=== PATIENT | female | born 1945 | race Caucasian/White ===

== ENCOUNTER 2020-02-25 17:00 | Inpatient (IN) | payer MEDICARE, OTHER ==
[2020-02-25 20:17] VITALS: BP 112/50
--- NOTE | 2020-02-26 06:47 | Psychiatric Evaluation ---
DATE OF SERVICE: 02/25/2020 AGE: 74. SEX: Female. PHYSICIAN: Dr. Nixon. CHIEF COMPLAINT: "I need a sip of water." "I can't breathe." HISTORY OF PRESENT ILLNESS: The patient is a 74-year-old female who was admitted to the hospital because of confusion. The patient also fell and has bruises all over her body and also has a bump on her head. The patient was medically cleared on [facility] and transferred to the hospital. The patient also had mechanical fall. Chart reviewed and the patient interviewed. The patient is confused at this time. She also was able to answer some of the questions coherently, like she knew her age and she knew that she lives "with my sister in the [facility]." She also did identify me as a doctor. The patient has history of anxiety and depression and the patient has been taking Remeron as well as Xanax and Zoloft. The patient also at this time hopeful. She was not taking any medications for seizures and the patient had seizure episode when she was admitted to [facility]. The patient said that she was , but her and she has no children. The patient also has been depressed, but she was not able to elaborate on the reasons for her depression. PAST PSYCHIATRIC ILLNESS: The patient obviously has history of depression. PAST MEDICAL HISTORY: The patient has seizure disorder as well as atrial fibrillation. The patient also had fall with multiple bruises. Also, she has dyslipidemia. FAMILY PSYCHIATRIC AND CHEMICAL DEPENDENCY HISTORY: Nothing reported. CHEMICAL DEPENDENCY HISTORY: The patient denied. PAIN ASSESSMENT: Nothing reported. ABUSE HISTORY: Nothing reported. LEGAL HISTORY: Nothing reported. SOCIAL HISTORY: The patient is a . She lives with her sister. No children. No known alcohol or drug use. ALLERGIES: No known allergies. MENTAL STATUS EXAMINATION: The patient appears her stated age. Unkempt. Sad affect. Confused. Rambling. Mood is depressed. The patient is talking to herself and she did not answer question regarding hallucinations or delusions or regarding suicide or homicide. The patient is alert and oriented to situation, but not to place or person. Impaired immediate and recent memory, but intact remote memory and she did remember her date. Poor insight and she does not know why she is in the hospital. Poor judgment. She is asking for water while she has water in her hands during my interview. Unable to assess her intelligence at this time because of her confusion. Poor concentration and attention span. ASSESSMENT: PRIMARY DIAGNOSIS: Major depression, severe, recurrent, with psychotic features. Rule out dementia with psychosis. MEDICAL DIAGNOSES: 1. Seizure disorder. 2. Atrial fibrillation. 3. Dyslipidemia. 4. Status post mechanical fall with multiple bruises to different areas of her body. TREATMENT PLAN: The patient started on Keppra. Continue same dose. Also, the patient currently was taking Xanax and Ativan and we will discontinue Ativan and continue Xanax with gradual try to reduce the dose of the Xanax. She will work on her ineffective coping and adjusting psychotropic medications. ESTIMATED LENGTH OF STAY: 5-7 days. PATIENT'S STRENGTHS AND WEAKNESSES: The patient seems to have supportive sister. Weakness is her ineffective coping. AFTER DISCHARGE PLAN: The patient might need to go to a nursing facility for physical therapy and rehabilitation. Otherwise, the patient will return to live with her sister with outpatient treatment. CRITERIA FOR DISCHARGE: The patient will not be agitated or psychotic and will stabilize psychotropic medications and will establish outpatient treatment plans. JOB# [id number]
[2020-02-26] MEDS: Apixaban 5 MG TABLET PO SCH ×2 (08:22→16:32)
--- NOTE | 2020-02-26 18:53 | History & Physical ---
ADMIT DATE: HISTORY OF PRESENT ILLNESS: We have a 74-year-old female with AFib, seizure disorder who was brought here for agitation. The patient apparently was talking to herself, has hallucinations and delusions. PAST MEDICAL HISTORY: 1. AFib. 2. Seizure disorder. 3. Dyslipidemia. 4. Status post fall. MEDICATIONS: List reviewed. ALLERGIES: None. SOCIAL HISTORY: Tobacco, IV drugs, ETOH negative. PHYSICAL EXAMINATION: VITAL SIGNS: Temperature is 97.8, pulse 78, respirations 136/75, satting 96%. HEENT: Normocephalic, atraumatic head exam. NECK: Supple. CARDIOVASCULAR: Regular rate and rhythm. LUNGS: Decreased breath sounds. ABDOMEN: Soft, nontender. EXTREMITIES: No edema, cyanosis or clubbing. ASSESSMENT AND PLAN: 1. Atrial fibrillation. 2. Seizure disorder. 3. Psychosis. The patient will be medically managed. Continue supportive care. JOB# [id number]
[2020-02-26] MEDS ORDERED: Non-Formulary Item 1 EA (Melatonin [Melatonin] 10 MG) PO SCH (21:00)
[2020-02-26] MEDS: Atorvastatin Calcium 10 MG TAB PO SCH (21:21)
[2020-02-27] MEDS: Apixaban 5 MG TABLET PO SCH ×2 (08:58→16:24)
--- NOTE | 2020-02-27 15:29 | Internal Medicine Prog Note ---
Internal Medicine Subjective - Subjective Service Date: 02/27/20 Patient seen and examined:: without staff Patient is:: awake, verbal Per staff patient has:: no adverse event, no episodes of fall Internal Medicine Objective - Physical Exam Vitals and I&O: Vital Signs Temp 98.4 F 02/27/20 06:11 Pulse 117 02/27/20 08:00 Resp 20 02/27/20 08:00 BP 111/60 02/27/20 08:00 Pulse Ox 99 02/27/20 06:11 Intake & Output 02/26/20 02/27/20 02/27/20 18:59 06:59 18:59 Intake Total 320 120 Balance 320 120 Intake: Oral 320 120 Other: # Voids 3 2 # Bowel Movements 0 Active Medications: Current Medications Acetaminophen (Tylenol) 650 mg PO Q4H PRN PRN Reason: Pain (Mild 1-3) Stop: 04/26/20 06:03 Acetaminophen (Tylenol) 650 mg PO Q4H PRN PRN Reason: Temperature Above 100 Stop: 04/26/20 06:04 Alprazolam (Xanax) 0.25 mg PO Q6HR PRN; Protocol PRN Reason: Anxiety Stop: 04/26/20 06:18 Alprazolam (Xanax) 0.5 mg PO BID [facility] Stop: 04/26/20 08:59 Last Admin: 02/27/20 08:57 Dose: 0.5 mg Atorvastatin Calcium (Lipitor) 10 mg PO HS [facility]; Protocol Stop: 04/26/20 20:59 Last Admin: 02/26/20 21:21 Dose: 10 mg Docusate Sodium (Colace) 100 mg PO DAILY [facility] Stop: 04/26/20 08:59 Last Admin: 02/27/20 08:58 Dose: 100 mg Mirtazapine (Remeron) 15 mg PO [facility] Stop: 04/27/20 20:59 Pregabalin 150 mg/ Pregabalin (50 mg) 200 mg PO DAILY [facility] Stop: 04/27/20 08:59 Last Admin: 02/27/20 08:58 Dose: 200 mg Sertraline HCl (Zoloft) 125 mg PO DAILY [facility] Stop: 04/27/20 08:59 Last Admin: 02/27/20 09:00 Dose: Not Given Trazodone HCl (Desyrel) 175 mg PO [facility]; Protocol Stop: 04/27/20 20:59 Zolpidem Tartrate (Ambien) 5 mg PO HS PRN PRN Reason: Insomnia Stop: 04/25/20 20:17 Last Admin: 02/25/20 23:43 Dose: 5 mg HEENT: NC/AT Neck: No JVD Cardiovascular: RRR, Normal S1, Normal S2 Abdomen: soft, non-tender Internal Medicine Assmt/Plan - Assessment Assessment: Agitation - Plan Plan: continue supportive care
[2020-02-27] MEDS: Atorvastatin Calcium 10 MG TAB PO SCH (20:22)
--- NOTE | 2020-02-27 21:40 | Progress Notes ---
DATE: 02/27/2020 SUBJECTIVE: Chart reviewed and the patient interviewed. Also discussed the patient's condition with the staff and reviewed records and labs. "I need TMS." The patient surprised me by saying that and when I asked her, she said that she did have TMS before and it did help her. She could not remember when or where, but the patient is still in a confused state and she is still rambling and wandering around. She also still seems to be suspicious and slightly paranoid. Also, has difficulty sleeping at night, although she is taking Remeron in a dose of 30 mg every day. Remeron and the higher dose usually has different effects on patients and can keep them awake rather than help them to sleep. The patient's gait is steady, but slow. Vital signs are stable and no new labs available for review. MENTAL STATUS EXAMINATION: Calm. Cooperative. Sad affect. In a depressed mood. Thought processes are mainly goal directed. The patient denies any hallucinations, but seems to be suspicious and paranoid. Today, she denies any thoughts of suicide or homicide. ASSESSMENT: The patient is still psychotic and confused. TREATMENT PLAN: We will decrease Remeron to 15 mg at bedtime and we will increase trazodone to 175 mg at bedtime and we will increase Zoloft to 125 mg every day. Also, continue monitoring and adjusting her psychotropic medications and continue to work on her ineffective coping and on her behavior. ESTIMATED LENGTH OF STAY: 2-4 days. REASON TO CONTINUE HOSPITAL STAY: The patient is still depressed and confused and needs to work on her ineffective coping and also her psychosis. JOB# [id number]
--- NOTE | 2020-02-28 08:01 | Progress Notes ---
DATE: SUBJECTIVE: Chart reviewed and the patient interviewed. Also discussed the patient's condition with the staff and reviewed records and labs. The patient is still confused and she still has difficulty expressing herself and her feelings. On the other hand, the patient is cooperative and compliant with taking her medications. The patient also is still having mood swings and she is still restless and also needs lots of redirections. Otherwise, the patient is compliant with taking her medications with no side effects of medications. The patient's gait is steady. Vital signs are stable and no new labs available for review. TREATMENT PLAN: We will continue monitoring her behavior and her condition closely. Also, continue monitoring psychotropic medications. Also, continue to work on her ineffective coping and her agitation. ESTIMATED LENGTH OF STAY: 2-3 days. REASON TO CONTINUE HOSPITAL STAY: The patient is still anxious and still needs close monitoring and adjusting her medications. JOB# [id number]
[2020-02-28] MEDS: Apixaban 5 MG TABLET PO SCH ×2 (08:43→16:19)
--- NOTE | 2020-02-28 12:21 | Internal Medicine Prog Note ---
Internal Medicine Subjective - Subjective Service Date: 02/28/20 Patient seen and examined:: without staff Patient is:: awake, verbal Per staff patient has:: no adverse event, no episodes of fall Internal Medicine Objective - Physical Exam Vitals and I&O: Vital Signs Temp 97.8 F 02/28/20 05:37 Pulse 67 02/28/20 05:37 Resp 18 02/28/20 05:37 BP 100/52 02/28/20 05:37 Pulse Ox 97 02/28/20 05:37 Intake & Output 02/27/20 02/28/20 02/28/20 18:59 06:59 18:59 Intake Total 1200 240 Balance 1200 240 Intake: Oral 1200 240 Other: # Voids 2 # Bowel Movements 1 0 Active Medications: Current Medications Acetaminophen (Tylenol) 650 mg PO Q4H PRN PRN Reason: Pain (Mild 1-3) Stop: 04/26/20 06:03 Acetaminophen (Tylenol) 650 mg PO Q4H PRN PRN Reason: Temperature Above 100 Stop: 04/26/20 06:04 Alprazolam (Xanax) 0.25 mg PO Q6HR PRN; Protocol PRN Reason: Anxiety Stop: 04/26/20 06:18 Alprazolam (Xanax) 0.5 mg PO BID [facility] Stop: 04/26/20 08:59 Last Admin: 02/28/20 08:43 Dose: 0.5 mg Atorvastatin Calcium (Lipitor) 10 mg PO [facility]; Protocol Stop: 04/26/20 20:59 Last Admin: 02/27/20 20:22 Dose: 10 mg Docusate Sodium (Colace) 100 mg PO DAILY [facility] Stop: 04/26/20 08:59 Last Admin: 02/28/20 08:43 Dose: 100 mg Mirtazapine (Remeron) 15 mg PO [facility] Stop: 04/27/20 20:59 Last Admin: 02/27/20 20:22 Dose: 15 mg Pregabalin 150 mg/ Pregabalin (50 mg) 200 mg PO DAILY [facility] Stop: 04/27/20 08:59 Last Admin: 02/28/20 08:43 Dose: 200 mg Sertraline HCl (Zoloft) 125 mg PO DAILY [facility] Stop: 04/27/20 08:59 Last Admin: 02/28/20 08:43 Dose: 125 mg Trazodone HCl (Desyrel) 175 mg PO HS [facility]; Protocol Stop: 04/27/20 20:59 Last Admin: 02/27/20 20:23 Dose: 175 mg Zolpidem Tartrate (Ambien) 5 mg PO HS PRN PRN Reason: Insomnia Stop: 04/25/20 20:17 Last Admin: 02/25/20 23:43 Dose: 5 mg HEENT: NC/AT Neck: No JVD Cardiovascular: RRR, Normal S1, Normal S2 Abdomen: soft, non-tender Internal Medicine Assmt/Plan - Assessment Assessment: Agitation - Plan Plan: continue supportive care
[2020-02-28] MEDS: Atorvastatin Calcium 10 MG TAB PO SCH (21:06)
[2020-02-29] MEDS: Apixaban 5 MG TABLET PO SCH ×2 (08:29→16:11)
[2020-02-29] MEDS: Atorvastatin Calcium 10 MG TAB PO SCH (21:16)
--- NOTE | 2020-02-29 21:40 | Progress Notes ---
DATE: 02/29/2020 SUBJECTIVE: The patient was seen, chart reviewed, and discussed with staff. The patient continues to be quite disoriented and confused; however, affect is bright and she is generally quite cooperative with treatment. She has been compliant with medications, following unit rules, albeit with some redirections. PLAN: The patient continues to be very unpredictable and confused, so that she will require inpatient care center and treatment. We will monitor on a daily basis for response to medications and titrate medications as needed. [facility]# [id number]
[2020-03-01] MEDS: Apixaban 5 MG TABLET PO SCH ×2 (08:16→17:32)
--- NOTE | 2020-03-01 11:59 | Internal Medicine Prog Note ---
Internal Medicine Subjective - Subjective Service Date: 03/01/20 Patient is:: awake, verbal Per staff patient has:: no adverse event, no episodes of fall Internal Medicine Objective - Physical Exam Vitals and I&O: Vital Signs Temp 97.1 F 03/01/20 06:07 Pulse 75 03/01/20 06:07 Resp 19 03/01/20 06:07 BP 120/60 03/01/20 06:07 Pulse Ox 97 03/01/20 06:07 Intake & Output 02/29/20 03/01/20 03/01/20 18:59 06:59 18:59 Intake Total 300 Output Total 1 Balance 299 Intake: Oral 300 Output: Urine/Stool Mix 1 Other: # Voids 1 1 # Bowel Movements 0 0 Active Medications: Current Medications Acetaminophen (Tylenol) 650 mg PO Q4H PRN PRN Reason: Pain (Mild 1-3) Stop: 04/26/20 06:03 Acetaminophen (Tylenol) 650 mg PO Q4H PRN PRN Reason: Temperature Above 100 Stop: 04/26/20 06:04 Alprazolam (Xanax) 0.25 mg PO Q6HR PRN; Protocol PRN Reason: Anxiety Stop: 04/26/20 06:18 Alprazolam (Xanax) 0.5 mg PO BID [facility] Stop: 04/26/20 08:59 Last Admin: 03/01/20 08:16 Dose: 0.5 mg Atorvastatin Calcium (Lipitor) 10 mg PO [facility]; Protocol Stop: 04/26/20 20:59 Last Admin: 02/29/20 21:16 Dose: 10 mg Docusate Sodium (Colace) 100 mg PO DAILY [facility] Stop: 04/26/20 08:59 Last Admin: 03/01/20 08:16 Dose: 100 mg Levetiracetam (Keppra) 500 mg PO BID [facility] Stop: 04/29/20 08:59 Last Admin: 03/01/20 08:17 Dose: 500 mg Levofloxacin (Levaquin) 500 mg PO DAILY [facility] Stop: 03/05/20 08:59 Last Admin: 03/01/20 08:18 Dose: 500 mg Mirtazapine (Remeron) 15 mg PO [facility] Stop: 04/27/20 20:59 Last Admin: 02/29/20 21:16 Dose: 15 mg Pregabalin 150 mg/ Pregabalin (50 mg) 200 mg PO DAILY [facility] Stop: 04/27/20 08:59 Last Admin: 03/01/20 08:17 Dose: 200 mg Sertraline HCl (Zoloft) 125 mg PO DAILY [facility] Stop: 04/27/20 08:59 Last Admin: 03/01/20 08:15 Dose: 125 mg Trazodone HCl (Desyrel) 175 mg PO HS [facility]; Protocol Stop: 04/27/20 20:59 Last Admin: 02/29/20 21:16 Dose: 175 mg Zolpidem Tartrate (Ambien) 5 mg PO HS PRN PRN Reason: Insomnia Stop: 04/25/20 20:17 Last Admin: 02/25/20 23:43 Dose: 5 mg HEENT: NC/AT Neck: No JVD Lungs: CTAB Cardiovascular: RRR, Normal S1, Normal S2 Abdomen: soft, non-tender Extremities: clear Neurological: no change Internal Medicine Assmt/Plan - Assessment Assessment: 1. UTI 2. Agitation - Plan Plan: start levaquin 500 mg daily sent u/a and culture await final results
--- NOTE | 2020-03-01 20:09 | Progress Notes ---
DATE: 03/01/2020 SUBJECTIVE: A 74-year-old female, currently in the hospital, confusional state. Apparently fell. The patient noting that she "fell" and hit her head, has no idea why she is in a psych hospital, does not even realize she is in a psych hospital, coming from [facility] confused, ongoing disorientation, does not really know why she is here, what is going on. She does ____ to history of psych admissions in the past, not a very good historian. I spent some time with her trying to assess her, but hard to get information from her. AO to name and place only. Ongoing depression. The patient is very ruminative, repetitious. Medications were reviewed. Vitals were reviewed. Labs were reviewed. Blood pressure 103/54, pulse of 64. No side effects noted. MENTAL STATUS EXAMINATION: Stated age, in a Danielle chair, calm, cooperative, but confused, ruminative. ASSESSMENT: A 74-year-old female, confused, disoriented, still somewhat impulsive, unpredictable, ruminative. PLAN: We will continue inpatient monitoring, continue dosing of Zoloft, ongoing symptoms, impulsivity. JOB# [id number]
[2020-03-01] MEDS: Atorvastatin Calcium 10 MG TAB PO SCH (20:35)
[2020-03-02] MEDS: Apixaban 5 MG TABLET PO SCH ×2 (08:56→16:14)
--- NOTE | 2020-03-02 13:53 | Internal Medicine Prog Note ---
Internal Medicine Subjective - Subjective Service Date: 03/02/20 Patient seen and examined:: without staff Patient is:: awake, verbal Per staff patient has:: no adverse event, no episodes of fall Internal Medicine Objective - Physical Exam Vitals and I&O: Vital Signs Temp 98.5 F 03/02/20 06:15 Pulse 73 03/02/20 06:15 Resp 16 03/02/20 08:00 BP 126/66 03/02/20 06:15 Pulse Ox 97 03/01/20 20:00 Intake & Output 03/01/20 03/02/20 03/02/20 18:59 06:59 18:59 Intake Total 1200 Balance 1200 Intake: Oral 1200 Other: # Voids 8 3 # Bowel Movements 1 0 Active Medications: Current Medications Acetaminophen (Tylenol) 650 mg PO Q4H PRN PRN Reason: Pain (Mild 1-3) Stop: 04/26/20 06:03 Acetaminophen (Tylenol) 650 mg PO Q4H PRN PRN Reason: Temperature Above 100 Stop: 04/26/20 06:04 Alprazolam (Xanax) 0.25 mg PO Q6HR PRN; Protocol PRN Reason: Anxiety Stop: 04/26/20 06:18 Alprazolam (Xanax) 0.5 mg PO BID [facility] Stop: 04/26/20 08:59 Last Admin: 03/02/20 08:57 Dose: 0.5 mg Atorvastatin Calcium (Lipitor) 10 mg PO [facility]; Protocol Stop: 04/26/20 20:59 Last Admin: 03/01/20 20:35 Dose: 10 mg Docusate Sodium (Colace) 100 mg PO DAILY [facility] Stop: 04/26/20 08:59 Last Admin: 03/02/20 08:56 Dose: 100 mg Levetiracetam (Keppra) 500 mg PO BID [facility] Stop: 04/29/20 08:59 Last Admin: 03/02/20 08:57 Dose: 500 mg Levofloxacin (Levaquin) 500 mg PO DAILY [facility] Stop: 03/05/20 08:59 Last Admin: 03/02/20 08:57 Dose: 500 mg Mirtazapine (Remeron) 15 mg PO [facility] Stop: 04/27/20 20:59 Last Admin: 03/01/20 20:35 Dose: 15 mg Pregabalin 150 mg/ Pregabalin (50 mg) 200 mg PO DAILY [facility] Stop: 04/27/20 08:59 Last Admin: 03/02/20 08:56 Dose: 200 mg Sertraline HCl (Zoloft) 125 mg PO DAILY [facility] Stop: 04/27/20 08:59 Last Admin: 03/02/20 08:56 Dose: 125 mg Trazodone HCl (Desyrel) 175 mg PO HS [facility]; Protocol Stop: 04/27/20 20:59 Last Admin: 03/01/20 20:35 Dose: 175 mg Zolpidem Tartrate (Ambien) 5 mg PO HS PRN PRN Reason: Insomnia Stop: 04/25/20 20:17 Last Admin: 02/25/20 23:43 Dose: 5 mg HEENT: NC/AT Neck: No JVD Lungs: CTAB Cardiovascular: RRR, Normal S1, Normal S2 Abdomen: soft, non-tender Extremities: clear Neurological: no change Internal Medicine Assmt/Plan - Assessment Assessment: 1. UTI 2. Agitation - Plan Plan: continue levaquin 500 mg daily symptoms improving slowly
--- NOTE | 2020-03-02 13:59 | Internal Medicine Prog Note ---
Internal Medicine Subjective - Subjective Patient is:: awake, verbal Per staff patient has:: no adverse event, no episodes of fall Internal Medicine Objective - Physical Exam Vitals and I&O: Vital Signs Temp 98.5 F 03/02/20 06:15 Pulse 73 03/02/20 06:15 Resp 16 03/02/20 08:00 BP 126/66 03/02/20 06:15 Pulse Ox 97 03/01/20 20:00 Intake & Output 03/01/20 03/02/20 03/02/20 18:59 06:59 18:59 Intake Total 1200 Balance 1200 Intake: Oral 1200 Other: # Voids 8 3 # Bowel Movements 1 0 Active Medications: Current Medications Acetaminophen (Tylenol) 650 mg PO Q4H PRN PRN Reason: Pain (Mild 1-3) Stop: 04/26/20 06:03 Acetaminophen (Tylenol) 650 mg PO Q4H PRN PRN Reason: Temperature Above 100 Stop: 04/26/20 06:04 Alprazolam (Xanax) 0.25 mg PO Q6HR PRN; Protocol PRN Reason: Anxiety Stop: 04/26/20 06:18 Alprazolam (Xanax) 0.5 mg PO BID [facility] Stop: 04/26/20 08:59 Last Admin: 03/02/20 08:57 Dose: 0.5 mg Atorvastatin Calcium (Lipitor) 10 mg PO [facility]; Protocol Stop: 04/26/20 20:59 Last Admin: 03/01/20 20:35 Dose: 10 mg Docusate Sodium (Colace) 100 mg PO DAILY [facility] Stop: 04/26/20 08:59 Last Admin: 03/02/20 08:56 Dose: 100 mg Levetiracetam (Keppra) 500 mg PO BID [facility] Stop: 04/29/20 08:59 Last Admin: 03/02/20 08:57 Dose: 500 mg Levofloxacin (Levaquin) 500 mg PO DAILY [facility] Stop: 03/05/20 08:59 Last Admin: 03/02/20 08:57 Dose: 500 mg Mirtazapine (Remeron) 15 mg PO [facility] Stop: 04/27/20 20:59 Last Admin: 03/01/20 20:35 Dose: 15 mg Pregabalin 150 mg/ Pregabalin (50 mg) 200 mg PO DAILY [facility] Stop: 04/27/20 08:59 Last Admin: 03/02/20 08:56 Dose: 200 mg Sertraline HCl (Zoloft) 125 mg PO DAILY [facility] Stop: 04/27/20 08:59 Last Admin: 03/02/20 08:56 Dose: 125 mg Trazodone HCl (Desyrel) 175 mg PO HS [facility]; Protocol Stop: 04/27/20 20:59 Last Admin: 03/01/20 20:35 Dose: 175 mg Zolpidem Tartrate (Ambien) 5 mg PO HS PRN PRN Reason: Insomnia Stop: 04/25/20 20:17 Last Admin: 02/25/20 23:43 Dose: 5 mg HEENT: NC/AT Neck: No JVD Lungs: CTAB Cardiovascular: RRR, Normal S1, Normal S2 Abdomen: soft, non-tender Extremities: clear Neurological: no change Internal Medicine Assmt/Plan - Assessment Assessment: 1. UTI 2. Agitation - Plan Plan: continue levaquin 500 mg daily symptoms improving slowly
--- NOTE | 2020-03-02 20:35 | Progress Notes ---
DATE: 03/02/2020 SUBJECTIVE: Chart reviewed and the patient interviewed. Also discussed the patient's condition with the staff and reviewed records and labs. The patient is still pleasantly confused and she is still anxious and actively talking to self. The patient also is restless and she still has been isolative and at times, she is coherent and making sense and other times cannot carry on coherent conversation. She is also still confused and needs lots of redirections. On the other hand, the patient seems to be calmer and is trying to talk more. The patient's gait is steady. Vital signs are stable and no new labs available for review. MENTAL STATUS EXAMINATION: Anxious. Restless. Irritable mood. Confused. The patient is actively responding to stimuli and unable to carry on coherent conversation. TREATMENT PLAN: Continue to monitor behavior and condition closely. Also, continue to work on her ineffective coping and on her irritability and adjusting psychotropic medications. ESTIMATED LENGTH OF STAY: 2-4 days. REASON FOR CONTINUED HOSPITAL STAY: The patient is still psychotic and needs close monitoring. JOB# [id number]
[2020-03-02] MEDS: Atorvastatin Calcium 10 MG TAB PO SCH (21:50)
[2020-03-03] MEDS: Apixaban 5 MG TABLET PO SCH ×2 (09:03→16:48)
--- NOTE | 2020-03-03 11:53 | Progress Notes ---
DATE: 03/03/2020 SUBJECTIVE: This is a 74-year-old female who I saw a few days prior. Dr. Nixon saw her yesterday, noted to be anxious, pleasantly confused, ongoing symptoms, restless, isolative, hard to carry on a conversation, just asking over and over to go to the bathroom. When I saw her a few days ago, she was just asking over and over to go to the bathroom, ruminative, staff noting that they are taking her to the bathroom dealing with this ongoing symptoms, needing a high level of prompting, redirection, in a Danielle chair, trying to get out of the Danielle chair. Medications were reviewed. Labs reviewed. Vitals were reviewed. Blood pressure 105/83, pulse of 96. MENTAL STATUS EXAMINATION: A little change from a few days prior, in a Danielle chair, restless, confused, disoriented, ruminative, impulsive. DIAGNOSIS: Unchanged. PLAN: Hard to control symptoms, complex case. We will continue to adjust and titrate medications. Medications were noted, trazodone, Zoloft, Xanax. JOB# [id number]
--- NOTE | 2020-03-03 15:46 | Internal Medicine Prog Note ---
Internal Medicine Subjective - Subjective Service Date: 03/03/20 Patient seen and examined:: without staff Patient is:: awake, verbal Per staff patient has:: no adverse event, no episodes of fall Internal Medicine Objective - Physical Exam Vitals and I&O: Vital Signs Temp 95.5 F 03/03/20 14:00 Pulse 71 03/03/20 14:00 Resp 20 03/03/20 14:00 BP 93/55 03/03/20 14:00 Pulse Ox 96 03/03/20 14:00 Intake & Output 03/02/20 03/03/20 03/03/20 18:59 06:59 18:59 Intake Total 1000 240 Output Total 1 Balance 1000 239 Intake: Oral 1000 240 Output: Urine/Stool Mix 1 Other: # Voids 4 2 # Bowel Movements 1 0 Stool Characteristics Formed Active Medications: Current Medications Acetaminophen (Tylenol) 650 mg PO Q4H PRN PRN Reason: Pain (Mild 1-3) Stop: 04/26/20 06:03 Acetaminophen (Tylenol) 650 mg PO Q4H PRN PRN Reason: Temperature Above 100 Stop: 04/26/20 06:04 Alprazolam (Xanax) 0.25 mg PO Q6HR PRN; Protocol PRN Reason: Anxiety Stop: 04/26/20 06:18 Alprazolam (Xanax) 0.5 mg PO BID [facility] Stop: 04/26/20 08:59 Last Admin: 03/03/20 09:02 Dose: 0.5 mg Atorvastatin Calcium (Lipitor) 10 mg PO [facility]; Protocol Stop: 04/26/20 20:59 Last Admin: 03/02/20 21:50 Dose: 10 mg Docusate Sodium (Colace) 100 mg PO DAILY [facility] Stop: 04/26/20 08:59 Last Admin: 03/03/20 09:02 Dose: 100 mg Levetiracetam (Keppra) 500 mg PO BID [facility] Stop: 04/29/20 08:59 Last Admin: 03/03/20 09:02 Dose: 500 mg Levofloxacin (Levaquin) 500 mg PO DAILY [facility] Stop: 03/05/20 08:59 Last Admin: 03/03/20 09:02 Dose: 500 mg Mirtazapine (Remeron) 15 mg PO [facility] Stop: 06/29/20 20:59 Last Admin: 03/02/20 21:50 Dose: 15 mg Pregabalin 150 mg/ Pregabalin (50 mg) 200 mg PO DAILY [facility] Stop: 04/27/20 08:59 Last Admin: 03/03/20 09:02 Dose: 200 mg Sertraline HCl (Zoloft) 125 mg PO DAILY [facility] Stop: 04/27/20 08:59 Last Admin: 03/03/20 09:02 Dose: 125 mg Trazodone HCl (Desyrel) 175 mg PO HS [facility]; Protocol Stop: 04/27/20 20:59 Last Admin: 03/02/20 21:50 Dose: 175 mg Zolpidem Tartrate (Ambien) 5 mg PO HS PRN PRN Reason: Insomnia Stop: 04/25/20 20:17 Last Admin: 02/25/20 23:43 Dose: 5 mg HEENT: NC/AT Neck: No JVD Lungs: CTAB Cardiovascular: RRR, Normal S1, Normal S2 Abdomen: soft, non-tender Extremities: clear Neurological: no change Internal Medicine Assmt/Plan - Assessment Assessment: 1. UTI 2. Agitation - Plan Plan: continue levaquin 500 mg daily symptoms improving slowly no evidence of hypoglycemia or hyperglycemia d/w r.n. Nutritional Asmnt/Malnutr-PDOC - Dietary Evaluation Malnutrition Findings (Please click <Entered> for more info): Nutritional Asmnt/Malnutrition Start: 03/02/20 14: 38 Text: Status: Complete Freq: Protocol: Document 03/02/20 14:38 KEYONA (Rec: 03/02/20 14:41 KEYONA [id number]) Nutritional Asmnt/Malnutrition Patient General Information Nutritional Screening Low Risk Diagnosis Psychosis Pertinent Medical Hx/Surgical Hx AFib, Seizure disorder, Dyslipidemia Subjective Information Pt is a 57-year-old female admitted on 02/24 d/t increased agitation. Pt is eating an estimated 80% of meals x4 days Per Meal/Nutrition Activity Record. Dietary is currently providing an estimated 2400 kcals and 120 gm Pro, per Pt PO intake this is providing an estimated 1900 kcals and 95gm Pro to meet 100% kcal and 100 +% Pro needs. Per wound care note (02/26), Laceration, present on admission. Wound bed has 100% black scab. No odor, no drainage. Loan-wound intact. Dry, stable. Anthropometrics HT: 54 WT: 150 LB (68.18 kg) BMI: 25.75 (overweight) GI/ Skin Integrity GI: WNL, Soft, Non-tender BM: 03/01 x1 I/O: 1200/Not Noted Skin: Back of Head laceration, erythema, Bruises Mega: 18 Diet Order: Mechanical Soft Estimated Energy Needs: ( Geriatric, CBW) 2432-1840 kcals (25-30 kcals/ kg) 70-80g Pro (1.0-1.2 g/kg) 1894-9530 ml (25-30 ml/kg) Current Diet Order/ Nutrition Support Mechanical Soft Pertinent Medications Lipitor, Colace Pertinent Labs 02/25: A1c 5.7% 02/21: Glucose 92, BUN/Cr 6/0.4 Nutritional Hx/Data Height 1.63 m Height (Calculated Centimeters) 162.6 Current Weight (lbs) 68.039 kg Weight (Calculated Kilograms) 68.0 Weight (Calculated Grams) 21738.9 [place] Body Weight 120 LB (54.55 kg) % [place] Body Weight 125 Body Mass Index (BMI) 25.7 Weight Status Overweight GI Symptoms Last BM 03/01 x1 Skin Integrity/Comment: Skin: Back of Head laceration, erythema, Bruises Mega: 18 Per wound care note (02/26), Laceration, present on admission. Wound bed has 100% black scab. No odor, no drainage. Loan-wound intact. Dry, stable. Current %PO Good (75-100%) Estimated Nutritional Goals BEE in Kcals: Using Current wt Calories/Kcals/Kg 25-30 Kcals Calculated 1448-0966 Protein: Using Current wt Protein g/k.0-1.2 Protein Calculated 70-80 Fluid: ml 9338-2759 ml (25-30 ml/kg) Nutritional Problem No current Nutrition Prob Problem No nutrition diagnosis at this time. Etiology N/A Signs/Symptoms: N/A Malnutrition Related to Morbid Obesity Malnutrition related to morbid obesity No Intervention/Recommendation Comments Continue Mechanical Soft diet as tolerated. Expected Outcomes/Goals Expected Outcomes/Goals 1.PO intake to continue to meet >75% of estimated nutritional needs. 2.Monitor PO intake, wt, nutrition related labs, and skin integrity to continue to trend WNL. 3.F/U as low risk in 7-10 days , 03/09-03/12.
[2020-03-03] MEDS: Atorvastatin Calcium 10 MG TAB PO SCH (20:37)
[2020-03-04] MEDS: Apixaban 5 MG TABLET PO SCH ×2 (08:54→17:29)
--- NOTE | 2020-03-04 12:55 | Progress Notes ---
DATE: 03/04/2020 SUBJECTIVE: A 74-year-old female in a Danielle chair, better orientation, knows it is 2019. She states her name. She knows that she is in [facility], know she is in a psychiatric hospital. States she is here because "I hit my head," stating that she lives with sister, hoping to go home, it is unclear what her psychosocial circumstances are, still in a Danielle chair, distraught, distressed, waxing and waning mentation, staff noting sometimes she is more confused, other times is more linear, still very ruminative about going to the bathroom, we are trying to get into a fpc. Medications were reviewed. Labs were reviewed. Vitals were reviewed. Blood pressure 93/55, pulse of 71. No side effects. MENTAL STATUS EXAMINATION: Stated age, in a Danielle chair, still restless, ruminative, still lashing out of the bathroom, still asking to go home, but orientation. ASSESSMENT: A 74-year-old female with ongoing symptoms as noted, still restless, hard to redirect. PLAN: We will continue to monitor. Medications were noted, some improvement noted today in her mental status examination, orientation, currently on dosing of Zoloft and Remeron. JOB# [id number]
--- NOTE | 2020-03-04 14:10 | Internal Medicine Prog Note ---
Internal Medicine Subjective - Subjective Service Date: 03/04/20 Patient is:: awake, verbal Per staff patient has:: no adverse event, no episodes of fall Internal Medicine Objective - Physical Exam Vitals and I&O: Vital Signs Temp 99 F 03/04/20 06:07 Pulse 117 03/04/20 06:07 Resp 16 03/04/20 08:00 BP 109/62 03/04/20 06:07 Pulse Ox 95 03/04/20 06:07 Intake & Output 03/03/20 03/04/20 03/04/20 18:59 06:59 18:59 Intake Total 880 120 Balance 880 120 Intake: Oral 760 120 Other 120 Other: # Voids 3 3 # Bowel Movements 0 0 Stool Characteristics Formed Formed Formed Brown Active Medications: Current Medications Acetaminophen (Tylenol) 650 mg PO Q4H PRN PRN Reason: Pain (Mild 1-3) Stop: 04/26/20 06:03 Acetaminophen (Tylenol) 650 mg PO Q4H PRN PRN Reason: Temperature Above 100 Stop: 04/26/20 06:04 Alprazolam (Xanax) 0.25 mg PO Q6HR PRN; Protocol PRN Reason: Anxiety Stop: 04/26/20 06:18 Alprazolam (Xanax) 0.5 mg PO BID [facility] Stop: 04/26/20 08:59 Last Admin: 03/04/20 08:54 Dose: 0.5 mg Atorvastatin Calcium (Lipitor) [address] [facility]; Protocol Stop: 04/26/20 20:59 Last Admin: 03/03/20 20:37 Dose: 10 mg Docusate Sodium (Colace) 100 mg PO DAILY [facility] Stop: 04/26/20 08:59 Last Admin: 03/04/20 08:54 Dose: 100 mg Levetiracetam (Keppra) 500 mg PO BID [facility] Stop: 04/29/20 08:59 Last Admin: 03/04/20 08:54 Dose: 500 mg Levofloxacin (Levaquin) 500 mg PO DAILY [facility] Stop: 03/05/20 08:59 Last Admin: 03/04/20 08:54 Dose: 500 mg Mirtazapine (Remeron) [address] [facility] Stop: 04/27/20 20:59 Last Admin: 03/03/20 20:37 Dose: 15 mg Pregabalin 150 mg/ Pregabalin (50 mg) 200 mg PO DAILY [facility] Stop: 04/27/20 08:59 Last Admin: 03/04/20 08:54 Dose: 200 mg Sertraline HCl (Zoloft) 125 mg PO DAILY [facility] Stop: 04/27/20 08:59 Last Admin: 03/04/20 08:54 Dose: 125 mg Trazodone HCl (Desyrel) 175 mg PO HS [facility]; Protocol Stop: 04/27/20 20:59 Last Admin: 03/03/20 20:36 Dose: 175 mg HEENT: NC/AT Neck: No JVD Lungs: CTAB Cardiovascular: RRR, Normal S1, Normal S2 Abdomen: soft, non-tender Extremities: clear Neurological: no change Internal Medicine Assmt/Plan - Assessment Assessment: 1. UTI 2. Agitation - Plan Plan: continue levaquin 500 mg daily symptoms improving slowly no evidence of hypoglycemia or hyperglycemia d/w r.n. Nutritional Asmnt/Malnutr-PDOC - Dietary Evaluation Malnutrition Findings (Please click <Entered> for more info): Nutritional Asmnt/Malnutrition Start: 03/02/20 14: 38 Text: Status: Complete Freq: Protocol: Document 03/02/20 14:38 KEYONA (Rec: 03/02/20 14:41 KEYONA [email or web address] [id number]) Nutritional Asmnt/Malnutrition Patient General Information Nutritional Screening Low Risk Diagnosis Psychosis Pertinent Medical Hx/Surgical Hx AFib, Seizure disorder, Dyslipidemia Subjective Information Pt is a 57-year-old female admitted on 02/24 d/t increased agitation. Pt is eating an estimated 80% of meals x4 days Per Meal/Nutrition Activity Record. Dietary is currently providing an estimated 2400 kcals and 120 gm Pro, per Pt PO intake this is providing an estimated 1900 kcals and 95gm Pro to meet 100% kcal and 100 +% Pro needs. Per wound care note (02/26), Laceration, present on admission. Wound bed has 100% black scab. No odor, no drainage. Loan-wound intact. Dry, stable. Anthropometrics HT: 54 WT: 150 LB (68.18 kg) BMI: 25.75 (overweight) GI/ Skin Integrity GI: WNL, Soft, Non-tender BM: 5/3 x1 I/O: 1200/Not Noted Skin: Back of Head laceration, erythema, Bruises Mega: 18 Diet Order: Mechanical Soft Estimated Energy Needs: ( Geriatric, CBW) 6320-2043 kcals (25-30 kcals/ kg) 70-80g Pro (1.0-1.2 g/kg) 7365-6826 ml (25-30 ml/kg) Current Diet Order/ Nutrition Support Mechanical Soft Pertinent Medications Lipitor, Colace Pertinent Labs 02/25: A1c 5.7% 02/21: Glucose 92, BUN/Cr 6/0.4 Nutritional Hx/Data Height 1.63 m Height (Calculated Centimeters) 162.6 Current Weight (lbs) 68.039 kg Weight (Calculated Kilograms) 68.0 Weight (Calculated Grams) 73753.9 [place] Body Weight 120 LB (54.55 kg) % [place] Body Weight 125 Body Mass Index (BMI) 25.7 Weight Status Overweight GI Symptoms Last BM 03/01 x1 Skin Integrity/Comment: Skin: Back of Head laceration, erythema, Bruises Mega: 18 Per wound care note (02/26), Laceration, present on admission. Wound bed has 100% black scab. No odor, no drainage. Loan-wound intact. Dry, stable. Current %PO Good (75-100%) Estimated Nutritional Goals BEE in Kcals: Using Current wt Calories/Kcals/Kg 25-30 Kcals Calculated 3842-1493 Protein: Using Current wt Protein g/k.0-1.2 Protein Calculated 70-80 Fluid: ml 2788-1210 ml (25-30 ml/kg) Nutritional Problem No current Nutrition Prob Problem No nutrition diagnosis at this time. Etiology N/A Signs/Symptoms: N/A Malnutrition Related to Morbid Obesity Malnutrition related to morbid obesity No Intervention/Recommendation Comments Continue Mechanical Soft diet as tolerated. Expected Outcomes/Goals Expected Outcomes/Goals 1.PO intake to continue to meet >75% of estimated nutritional needs. 2.Monitor PO intake, wt, nutrition related labs, and skin integrity to continue to trend WNL. 3.F/U as low risk in 7-10 days , 03/09-03/12.
[2020-03-04] MEDS: Atorvastatin Calcium 10 MG TAB PO SCH (20:30)
[2020-03-05] MEDS: Apixaban 5 MG TABLET PO SCH ×2 (08:56→16:54)
--- NOTE | 2020-03-05 14:20 | Internal Medicine Prog Note ---
Internal Medicine Subjective - Subjective Service Date: 03/05/20 Patient is:: awake, verbal Per staff patient has:: no adverse event, no episodes of fall Internal Medicine Objective - Physical Exam Vitals and I&O: Vital Signs Temp 98.5 F 03/05/20 06:23 Pulse 69 03/05/20 06:23 Resp 16 03/05/20 08:00 BP 122/64 03/05/20 06:23 Pulse Ox 96 03/05/20 06:23 Intake & Output 03/04/20 03/05/20 03/05/20 18:59 06:59 18:59 Intake Total 800 120 Balance 800 120 Intake: Oral 800 120 Other: # Voids 5 1 # Bowel Movements 0 0 Stool Characteristics Formed Formed Active Medications: Current Medications Acetaminophen (Tylenol) 650 mg PO Q4H PRN PRN Reason: Pain (Mild 1-3) Stop: 04/26/20 06:03 Acetaminophen (Tylenol) 650 mg PO Q4H PRN PRN Reason: Temperature Above 100 Stop: 04/26/20 06:04 Alprazolam (Xanax) 0.25 mg PO Q6HR PRN; Protocol PRN Reason: Anxiety Stop: 04/26/20 06:18 Alprazolam (Xanax) 0.5 mg PO BID [facility] Stop: 04/26/20 08:59 Last Admin: 03/05/20 08:56 Dose: 0.5 mg Atorvastatin Calcium (Lipitor) 10 mg PO HS [facility]; Protocol Stop: 04/26/20 20:59 Last Admin: 03/04/20 20:30 Dose: 10 mg Docusate Sodium (Colace) 100 mg PO DAILY [facility] Stop: 04/26/20 08:59 Last Admin: 03/05/20 08:56 Dose: 100 mg Levetiracetam (Keppra) 500 mg PO BID [facility] Stop: 04/29/20 08:59 Last Admin: 03/05/20 08:56 Dose: 500 mg Mirtazapine (Remeron) 15 mg PO [facility] Stop: 04/27/20 20:59 Last Admin: 03/04/20 20:30 Dose: 15 mg Pregabalin 150 mg/ Pregabalin (50 mg) 200 mg PO DAILY [facility] Stop: 04/27/20 08:59 Last Admin: 05/07/20 08:56 Dose: 200 mg Sertraline HCl (Zoloft) 125 mg PO DAILY [facility] Stop: 04/27/20 08:59 Last Admin: 03/05/20 08:57 Dose: 125 mg Trazodone HCl (Desyrel) 175 mg PO HS [facility]; Protocol Stop: 04/27/20 20:59 Last Admin: 03/04/20 20:29 Dose: 175 mg HEENT: NC/AT Neck: No JVD Lungs: CTAB Cardiovascular: RRR, Normal S1, Normal S2 Abdomen: soft, non-tender Extremities: clear Neurological: no change Internal Medicine Assmt/Plan - Assessment Assessment: 1. UTI 2. Agitation - Plan Plan: continue levaquin 500 mg daily symptoms improving slowly no evidence of hypoglycemia or hyperglycemia d/w r.n. Nutritional Asmnt/Malnutr-PDOC - Dietary Evaluation Malnutrition Findings (Please click <Entered> for more info): Nutritional Asmnt/Malnutrition Start: 03/02/20 14: 38 Text: Status: Complete Freq: Protocol: Document 03/02/20 14:38 KEYONA (Rec: 03/02/20 14:41 KEYONA [id number] [id number]) Nutritional Asmnt/Malnutrition Patient General Information Nutritional Screening Low Risk Diagnosis Psychosis Pertinent Medical Hx/Surgical Hx AFib, Seizure disorder, Dyslipidemia Subjective Information Pt is a 57-year-old female admitted on 02/24 d/t increased agitation. Pt is eating an estimated 80% of meals x4 days Per Meal/Nutrition Activity Record. Dietary is currently providing an estimated 2400 kcals and 120 gm Pro, per Pt PO intake this is providing an estimated 1900 kcals and 95gm Pro to meet 100% kcal and 100 +% Pro needs. Per wound care note (02/26), Laceration, present on admission. Wound bed has 100% black scab. No odor, no drainage. Loan-wound intact. Dry, stable. Anthropometrics HT: 54 WT: 150 LB (68.18 kg) BMI: 25.75 (overweight) GI/ Skin Integrity GI: WNL, Soft, Non-tender BM: 5/3 x1 I/O: 1200/Not Noted Skin: Back of Head laceration, erythema, Bruises Mega: 18 Diet Order: Mechanical Soft Estimated Energy Needs: ( Geriatric, CBW) 2866-8776 kcals (25-30 kcals/ kg) 70-80g Pro (1.0-1.2 g/kg) 7612-3470 ml (25-30 ml/kg) Current Diet Order/ Nutrition Support Mechanical Soft Pertinent Medications Lipitor, Colace Pertinent Labs 02/25: A1c 5.7% 02/21: Glucose 92, BUN/Cr 6/0.4 Nutritional Hx/Data Height 1.63 m Height (Calculated Centimeters) 162.6 Current Weight (lbs) 68.039 kg Weight (Calculated Kilograms) 68.0 Weight (Calculated Grams) 71530.9 [place] Body Weight 120 LB (54.55 kg) % [place] Body Weight 125 Body Mass Index (BMI) 25.7 Weight Status Overweight GI Symptoms Last BM 03/01 x1 Skin Integrity/Comment: Skin: Back of Head laceration, erythema, Bruises Mega: 18 Per wound care note (02/26), Laceration, present on admission. Wound bed has 100% black scab. No odor, no drainage. Loan-wound intact. Dry, stable. Current %PO Good (75-100%) Estimated Nutritional Goals BEE in Kcals: Using Current wt Calories/Kcals/Kg 25-30 Kcals Calculated 9107-7089 Protein: Using Current wt Protein g/k.0-1.2 Protein Calculated 70-80 Fluid: ml 9829-9330 ml (25-30 ml/kg) Nutritional Problem No current Nutrition Prob Problem No nutrition diagnosis at this time. Etiology N/A Signs/Symptoms: N/A Malnutrition Related to Morbid Obesity Malnutrition related to morbid obesity No Intervention/Recommendation Comments Continue Mechanical Soft diet as tolerated. Expected Outcomes/Goals Expected Outcomes/Goals 1.PO intake to continue to meet >75% of estimated nutritional needs. 2.Monitor PO intake, wt, nutrition related labs, and skin integrity to continue to trend WNL. 3.F/U as low risk in 7-10 days , 03/09-03/12.
--- NOTE | 2020-03-05 18:44 | Progress Notes ---
DATE: 03/05/2020 SUBJECTIVE: Chart reviewed and the patient interviewed. Also discussed the patient's condition with the staff and reviewed records and labs. The patient is still anxious and she is still slightly confused. The patient also is fearful and she is having difficulty relaxing and needs lots of redirections. Also, her thought processes are still disorganized. The patient's gait is slow and vital signs are stable and no new labs available for review. MENTAL STATUS EXAMINATION: Anxious. Cooperative. Thought processes are circumstantial. The patient needs lots of reassurance in order to continue her conversation and she seems to be slightly paranoid. She denies any thoughts of suicide or homicide. ASSESSMENT: The patient is still anxious and still needs close monitoring. TREATMENT PLAN: Continue to monitor her behavior and her condition closely. Also, continue to work on placement issue and [facility] questionable, if the patient can go there. At the same time, continue same treatment and followup. ESTIMATED LENGTH OF STAY: 2-4 days. REASON FOR CONTINUED HOSPITAL STAY: Continue monitoring her behavior and adjusting medications and working on discharge plans. JOB# [id number]
[2020-03-05] MEDS: Atorvastatin Calcium 10 MG TAB PO SCH (20:54)
--- NOTE | 2020-03-06 08:24 | Progress Notes ---
DATE: PSYCHIATRIC PROGRESS NOTE SUBJECTIVE: Chart reviewed and the patient interviewed. Also discussed the patient's condition with the staff and reviewed records and labs. "Would you please lower the bed down." The patient is still severely anxious. The patient also is still in a depressed mood. The patient is also still having severe mood swings and still has difficulty making decisions. Today, she seems to be more anxious for unknown reason. At the same time, the patient is compliant with taking her medications with no side effects. The patient's gait is steady but slow. Vital signs are stable and no new labs available for review. MENTAL STATUS EXAMINATION: Anxious. Sad affect. Depressed mood. Disheveled. Thought processes are circumstantial with flight of ideas. ASSESSMENT: The patient is still severely anxious and also in a depressed mood. TREATMENT PLAN: We will continue to monitor her behavior and her condition closely. Also, we will add BuSpar in a dose of 5 mg twice a day. Also trying placement of the patient and working on placement issue. ESTIMATED LENGTH OF STAY: 2-4 days. REASON FOR CONTINUED HOSPITAL STAY: The patient is still severely anxious and still needs close monitoring of her condition. Also, the patient still needs placement. JOB# [id number]
[2020-03-06] MEDS: Apixaban 5 MG TABLET PO SCH ×2 (08:38→16:26)
--- NOTE | 2020-03-06 12:28 | Internal Medicine Prog Note ---
Internal Medicine Subjective - Subjective Service Date: 03/06/20 Patient seen and examined:: without staff Patient is:: awake, verbal Per staff patient has:: no adverse event, no episodes of fall Internal Medicine Objective - Physical Exam Vitals and I&O: Vital Signs Temp 98.5 F 03/06/20 06:36 Pulse 102 03/06/20 06:36 Resp 20 03/06/20 07:44 BP 103/64 03/06/20 06:36 Pulse Ox 96 03/06/20 06:36 Intake & Output 03/05/20 03/06/20 03/06/20 18:59 06:59 18:59 Intake Total 800 120 Balance 800 120 Intake: Oral 800 120 Other: # Voids 3 3 # Bowel Movements 1 Stool Characteristics Formed Active Medications: Current Medications Acetaminophen (Tylenol) 650 mg PO Q4H PRN PRN Reason: Pain (Mild 1-3) Stop: 04/26/20 06:03 Last Admin: 03/06/20 09:05 Dose: 650 mg Acetaminophen (Tylenol) 650 mg PO Q4H PRN PRN Reason: Temperature Above 100 Stop: 04/26/20 06:04 Alprazolam (Xanax) 0.25 mg PO Q6HR PRN; Protocol PRN Reason: Anxiety Stop: 04/26/20 06:18 Last Admin: 03/06/20 09:05 Dose: 0.25 mg Alprazolam (Xanax) 0.5 mg PO BID [facility] Stop: 04/26/20 08:59 Last Admin: 03/06/20 08:38 Dose: 0.5 mg Atorvastatin Calcium (Lipitor) 10 mg PO [facility]; Protocol Stop: 04/26/20 20:59 Last Admin: 03/05/20 20:54 Dose: 10 mg Buspirone HCl (Buspar) 5 mg PO BID [facility]; Protocol Stop: 05/05/20 08:59 Docusate Sodium (Colace) 100 mg PO DAILY [facility] Stop: 04/26/20 08:59 Last Admin: 03/06/20 08:38 Dose: 100 mg Levetiracetam (Keppra) 500 mg PO BID [facility] Stop: 04/29/20 08:59 Last Admin: 03/06/20 08:38 Dose: 500 mg Mirtazapine (Remeron) 15 mg PO [facility] Stop: 04/27/20 20:59 Last Admin: 03/05/20 20:54 Dose: 15 mg Pregabalin 150 mg/ Pregabalin (50 mg) 200 mg PO DAILY [facility] Stop: 04/27/20 08:59 Last Admin: 03/06/20 08:38 Dose: 200 mg Sertraline HCl (Zoloft) 125 mg PO DAILY [facility] Stop: 04/27/20 08:59 Last Admin: 03/06/20 08:39 Dose: 125 mg Trazodone HCl (Desyrel) 175 mg PO HS [facility]; Protocol Stop: 04/27/20 20:59 Last Admin: 03/05/20 20:52 Dose: 175 mg Zolpidem Tartrate (Ambien) 5 mg PO HS PRN PRN Reason: Insomnia Stop: 05/05/20 11:19 HEENT: NC/AT Neck: No JVD Lungs: CTAB Cardiovascular: RRR, Normal S1, Normal S2 Abdomen: soft, non-tender Extremities: clear Neurological: no change Internal Medicine Assmt/Plan - Assessment Assessment: 1. UTI 2. Agitation - Plan Plan: continue levaquin 500 mg daily symptoms improving slowly no evidence of hypoglycemia or hyperglycemia d/w r.n. Nutritional Asmnt/Malnutr-PDOC - Dietary Evaluation Malnutrition Findings (Please click <Entered> for more info): Nutritional Asmnt/Malnutrition Start: 03/02/20 14: 38 Text: Status: Complete Freq: Protocol: Document 03/02/20 14:38 KEYONA (Rec: 03/02/20 14:41 KEYONA [id number]) Nutritional Asmnt/Malnutrition Patient General Information Nutritional Screening Low Risk Diagnosis Psychosis Pertinent Medical Hx/Surgical Hx AFib, Seizure disorder, Dyslipidemia Subjective Information Pt is a 57-year-old female admitted on 02/24 d/t increased agitation. Pt is eating an estimated 80% of meals x4 days Per Meal/Nutrition Activity Record. Dietary is currently providing an estimated 2400 kcals and 120 gm Pro, per Pt PO intake this is providing an estimated 1900 kcals and 95gm Pro to meet 100% kcal and 100 +% Pro needs. Per wound care note (02/26), Laceration, present on admission. Wound bed has 100% black scab. No odor, no drainage. Loan-wound intact. Dry, stable. Anthropometrics HT: 54 WT: 150 LB (68.18 kg) BMI: 25.75 (overweight) GI/ Skin Integrity GI: WNL, Soft, Non-tender BM: 03/01 x1 I/O: 1200/Not Noted Skin: Back of Head laceration, erythema, Bruises Mega: 18 Diet Order: Mechanical Soft Estimated Energy Needs: ( Geriatric, CBW) 1137-9773 kcals (25-30 kcals/ kg) 70-80g Pro (1.0-1.2 g/kg) 8485-5056 ml (25-30 ml/kg) Current Diet Order/ Nutrition Support Mechanical Soft Pertinent Medications Lipitor, Colace Pertinent Labs 02/25: A1c 5.7% 02/21: Glucose 92, BUN/Cr 6/0.4 Nutritional Hx/Data Height 1.63 m Height (Calculated Centimeters) 162.6 Current Weight (lbs) 68.039 kg Weight (Calculated Kilograms) 68.0 Weight (Calculated Grams) 28941.9 [place] Body Weight 120 LB (54.55 kg) % [place] Body Weight 125 Body Mass Index (BMI) 25.7 Weight Status Overweight GI Symptoms Last BM 03/01 x1 Skin Integrity/Comment: Skin: Back of Head laceration, erythema, Bruises Mega: 18 Per wound care note (02/26), Laceration, present on admission. Wound bed has 100% black scab. No odor, no drainage. Loan-wound intact. Dry, stable. Current %PO Good (75-100%) Estimated Nutritional Goals BEE in Kcals: Using Current wt Calories/Kcals/Kg 25-30 Kcals Calculated 4107-7814 Protein: Using Current wt Protein g/k.0-1.2 Protein Calculated 70-80 Fluid: ml 7800-8497 ml (25-30 ml/kg) Nutritional Problem No current Nutrition Prob Problem No nutrition diagnosis at this time. Etiology N/A Signs/Symptoms: N/A Malnutrition Related to Morbid Obesity Malnutrition related to morbid obesity No Intervention/Recommendation Comments Continue Mechanical Soft diet as tolerated. Expected Outcomes/Goals Expected Outcomes/Goals 1.PO intake to continue to meet >75% of estimated nutritional needs. 2.Monitor PO intake, wt, nutrition related labs, and skin integrity to continue to trend WNL. 3.F/U as low risk in 7-10 days , 03/09-03/12.
[2020-03-06] MEDS: Atorvastatin Calcium 10 MG TAB PO SCH (21:12)
[2020-03-07] MEDS: Apixaban 5 MG TABLET PO SCH ×2 (08:33→16:59)
[2020-03-07] MEDS: Atorvastatin Calcium 10 MG TAB PO SCH (20:43)
--- NOTE | 2020-03-07 20:56 | Psych Progress Note ---
Psych Progress Note - Intro Date of Progress Note: 03/07/20 - Assessment Assessment: Patient interviewed, case discussed with staff, chart and records reviewed. The patient appears to be depressed and withdrawn. Limited cooperation with the interview. No side effects noted to the medication. The patient has no plan for self-care. Per nurse reports the patient has been withdrawn and isolating to her room. Also per staff the patient has episodes of anxiety. - Vitals, I&O Vitals: Vital Signs - 24 hr 03/07/20 03/07/20 03/07/20 06:43 07:16 14:00 Temp 99.1 F 97.8 F HR 64 79 RR 20 20 20 BP 141/67 88/52 O2 Sat % 94 95 03/07/20 20:07 Temp 97.8 F HR 73 RR 20 BP 112/63 O2 Sat % 96 - Objective Psych General Appearance: Report: No acute distress Psych Behavior: Report: Alert, Calm, Uncooperative Psych Speech: Report: Soft Psych Mood: Report: Depressed Psych Affect: Report: Constricted Psych Insight: Report: Impaired Psych Judgement: Report: Impaired - Plan Plan: , Continue current treatment plan: Continue current medications, continue to follow behaviors. - Review of Relevant Data Review of Relevant Data: I have reviewed the following items and time karin (where applicable) has been applied. Psych Data Reviewed: Vitals - Medications Current Medications: Current Medications Acetaminophen (Tylenol) 650 mg PO Q4H PRN PRN Reason: Pain (Mild 1-3) Stop: 04/26/20 06:03 Last Admin: 03/06/20 09:05 Dose: 650 mg Acetaminophen (Tylenol) 650 mg PO Q4H PRN PRN Reason: Temperature Above 100 Stop: 04/26/20 06:04 Alprazolam (Xanax) 0.25 mg PO Q6HR PRN; Protocol PRN Reason: Anxiety Stop: 04/26/20 06:18 Last Admin: 03/06/20 09:05 Dose: 0.25 mg Alprazolam (Xanax) 0.5 mg PO BID [facility] Stop: 04/26/20 08:59 Last Admin: 03/07/20 16:59 Dose: 0.5 mg Atorvastatin Calcium (Lipitor) 10 mg PO HS [facility]; Protocol Stop: 04/26/20 20:59 Last Admin: 03/07/20 20:43 Dose: 10 mg Buspirone HCl (Buspar) 5 mg PO BID [facility]; Protocol Stop: 05/05/20 08:59 Last Admin: 03/07/20 16:59 Dose: 5 mg Docusate Sodium (Colace) 100 mg PO DAILY [facility] Stop: 04/26/20 08:59 Last Admin: 03/07/20 08:34 Dose: 100 mg Levetiracetam (Keppra) 500 mg PO BID [facility] Stop: 04/29/20 08:59 Last Admin: 03/07/20 16:59 Dose: 500 mg Mirtazapine (Remeron) 15 mg PO HS [facility] Stop: 04/27/20 20:59 Last Admin: 03/07/20 20:43 Dose: 15 mg Pregabalin 150 mg/ Pregabalin (50 mg) 200 mg PO DAILY [facility] Stop: 04/27/20 08:59 Last Admin: 03/07/20 08:34 Dose: 200 mg Sertraline HCl (Zoloft) 125 mg PO DAILY [facility] Stop: 04/27/20 08:59 Last Admin: 03/07/20 08:34 Dose: 125 mg Trazodone HCl (Desyrel) 175 mg PO HS [facility]; Protocol Stop: 04/27/20 20:59 Last Admin: 03/07/20 20:43 Dose: 175 mg Zolpidem Tartrate (Ambien) 5 mg PO HS PRN PRN Reason: Insomnia Stop: 05/05/20 11:19 Last Admin: 03/07/20 01:16 Dose: 5 mg
[2020-03-08] MEDS: Apixaban 5 MG TABLET PO SCH ×2 (10:10→17:49)
--- NOTE | 2020-03-08 19:10 | Psych Progress Note ---
Psych Progress Note - Intro Date of Progress Note: 03/08/20 - Assessment Assessment: Patient interviewed, case discussed with staff, chart and records reviewed. The patient appears to be depressed and withdrawn. Limited cooperation with the interview. No side effects noted to the medication. The patient has no plan for self-care. Per nurse reports the patient has been withdrawn and isolating to her room. Also per staff the patient has episodes of anxiety. - Vitals, I&O Vitals: Vital Signs - 24 hr 03/07/20 03/08/20 03/08/20 20:07 06:22 08:00 Temp 97.8 F 98.8 F HR 73 80 RR 20 20 16 BP 112/63 113/66 O2 Sat % 96 94 03/08/20 14:00 Temp 99.0 F HR 109 RR 20 BP 101/56 O2 Sat % 93 - Objective Psych General Appearance: Report: No acute distress Psych Behavior: Report: Alert, Calm, Uncooperative Psych Speech: Report: Soft Psych Mood: Report: Depressed Psych Affect: Report: Constricted Psych Insight: Report: Impaired Psych Judgement: Report: Impaired - Plan Plan: Continue current medications, continue to follow behaviors. - Review of Relevant Data Review of Relevant Data: I have reviewed the following items and time karin (where applicable) has been applied. - Medications Current Medications: Current Medications Acetaminophen (Tylenol) 650 mg PO Q4H PRN PRN Reason: Pain (Mild 1-3) Stop: 04/26/20 06:03 Last Admin: 03/06/20 09:05 Dose: 650 mg Acetaminophen (Tylenol) 650 mg PO Q4H PRN PRN Reason: Temperature Above 100 Stop: 04/26/20 06:04 Alprazolam (Xanax) 0.25 mg PO Q6HR PRN; Protocol PRN Reason: Anxiety Stop: 04/26/20 06:18 Last Admin: 03/08/20 13:49 Dose: 0.25 mg Alprazolam (Xanax) 0.5 mg PO BID [facility] Stop: 04/26/20 08:59 Last Admin: 03/08/20 17:49 Dose: 0.5 mg Atorvastatin Calcium (Lipitor) 10 mg PO HS [facility]; Protocol Stop: 04/26/20 20:59 Last Admin: 03/07/20 20:43 Dose: 10 mg Buspirone HCl (Buspar) 5 mg PO BID [facility]; Protocol Stop: 05/05/20 08:59 Last Admin: 03/08/20 17:49 Dose: 5 mg Docusate Sodium (Colace) 100 mg PO DAILY [facility] Stop: 04/26/20 08:59 Last Admin: 03/08/20 10:06 Dose: Not Given Levetiracetam (Keppra) 500 mg PO BID [facility] Stop: 04/29/20 08:59 Last Admin: 03/08/20 17:49 Dose: Not Given Mirtazapine (Remeron) 15 mg PO HS [facility] Stop: 04/27/20 20:59 Last Admin: 03/07/20 20:43 Dose: 15 mg Pregabalin 150 mg/ Pregabalin (50 mg) 200 mg PO DAILY [facility] Stop: 04/27/20 08:59 Last Admin: 03/08/20 10:05 Dose: Not Given Sertraline HCl (Zoloft) 125 mg PO DAILY [facility] Stop: 04/27/20 08:59 Last Admin: 03/08/20 10:05 Dose: Not Given Trazodone HCl (Desyrel) 175 mg PO HS [facility]; Protocol Stop: 04/27/20 20:59 Last Admin: 03/07/20 20:43 Dose: 175 mg Zolpidem Tartrate (Ambien) 5 mg PO HS PRN PRN Reason: Insomnia Stop: 05/05/20 11:19 Last Admin: 03/07/20 01:16 Dose: 5 mg
[2020-03-08] MEDS: Atorvastatin Calcium 10 MG TAB PO SCH (20:57)
[2020-03-09] MEDS: Apixaban 5 MG TABLET PO SCH ×2 (08:50→16:50)
--- NOTE | 2020-03-09 11:21 | Internal Medicine Prog Note ---
Internal Medicine Subjective - Subjective Service Date: 03/09/20 (large bruise on leg) Patient seen and examined:: without staff Patient is:: awake, verbal Per staff patient has:: no adverse event, no episodes of fall Internal Medicine Objective - Physical Exam Vitals and I&O: Vital Signs Temp 98.2 F 03/09/20 06:13 Pulse 72 03/09/20 06:13 Resp 20 03/09/20 06:13 BP 106/59 03/09/20 06:13 Pulse Ox 94 03/09/20 06:13 Intake & Output 03/08/20 03/09/20 03/09/20 18:59 06:59 18:59 Intake Total 950 480 Balance 950 480 Intake: Oral 950 480 Other: # Voids 2 # Bowel Movements 0 Stool Characteristics Formed Active Medications: Current Medications Acetaminophen (Tylenol) 650 mg PO Q4H PRN PRN Reason: Pain (Mild 1-3) Stop: 04/26/20 06:03 Last Admin: 03/09/20 02:26 Dose: 650 mg Acetaminophen (Tylenol) 650 mg PO Q4H PRN PRN Reason: Temperature Above 100 Stop: 04/26/20 06:04 Alprazolam (Xanax) 0.25 mg PO Q6HR PRN; Protocol PRN Reason: Anxiety Stop: 04/26/20 06:18 Last Admin: 03/08/20 13:49 Dose: 0.25 mg Alprazolam (Xanax) 0.5 mg PO BID [facility] Stop: 04/26/20 08:59 Last Admin: 03/09/20 08:50 Dose: 0.5 mg Atorvastatin Calcium (Lipitor) 10 mg PO HS [facility]; Protocol Stop: 04/26/20 20:59 Last Admin: 03/08/20 20:57 Dose: 10 mg Buspirone HCl (Buspar) 5 mg PO BID [facility]; Protocol Stop: 05/05/20 08:59 Last Admin: 03/09/20 08:50 Dose: 5 mg Docusate Sodium (Colace) 100 mg PO DAILY [facility] Stop: 04/26/20 08:59 Last Admin: 03/09/20 08:50 Dose: Not Given Levetiracetam (Keppra) 500 mg PO BID [facility] Stop: 04/29/20 08:59 Last Admin: 03/09/20 08:50 Dose: 500 mg Mirtazapine (Remeron) 15 mg PO HS [facility] Stop: 04/27/20 20:59 Last Admin: 03/08/20 20:57 Dose: 15 mg Pregabalin 150 mg/ Pregabalin (50 mg) 200 mg PO DAILY [facility] Stop: 04/27/20 08:59 Last Admin: 03/09/20 08:50 Dose: 200 mg Sertraline HCl (Zoloft) 150 mg PO HS [facility] Stop: 05/08/20 20:59 Trazodone HCl (Desyrel) 175 mg PO HS [facility]; Protocol Stop: 04/27/20 20:59 Last Admin: 03/08/20 20:56 Dose: 175 mg Zolpidem Tartrate (Ambien) 5 mg PO HS PRN PRN Reason: Insomnia Stop: 05/05/20 11:19 Last Admin: 03/07/20 01:16 Dose: 5 mg HEENT: NC/AT Neck: No JVD Lungs: CTAB Cardiovascular: RRR, Normal S1, Normal S2 Abdomen: soft, non-tender Extremities: clear Neurological: no change Internal Medicine Assmt/Plan - Assessment Assessment: 1. UTI, resolved 2. Agitation 3. Echymosis of leg, - Plan Plan: stat cbc, inr, pt, ptt discussed with rmatt Nutritional Asmnt/Malnutr-PDOC - Dietary Evaluation Malnutrition Findings (Please click <Entered> for more info): Nutritional Asmnt/Malnutrition Start: 03/02/20 14: 38 Text: Status: Complete Freq: Protocol: Document 03/02/20 14:38 KEYONA (Rec: 03/02/20 14:41 KEYONA [id number]) Nutritional Asmnt/Malnutrition Patient General Information Nutritional Screening Low Risk Diagnosis Psychosis Pertinent Medical Hx/Surgical Hx AFib, Seizure disorder, Dyslipidemia Subjective Information Pt is a 57-year-old female admitted on 02/24 d/t increased agitation. Pt is eating an estimated 80% of meals x4 days Per Meal/Nutrition Activity Record. Dietary is currently providing an estimated 2400 kcals and 120 gm Pro, per Pt PO intake this is providing an estimated 1900 kcals and 95gm Pro to meet 100% kcal and 100 +% Pro needs. Per wound care note (02/26), Laceration, present on admission. Wound bed has 100% black scab. No odor, no drainage. Loan-wound intact. Dry, stable. Anthropometrics HT: 54 WT: 150 LB (68.18 kg) BMI: 25.75 (overweight) GI/ Skin Integrity GI: WNL, Soft, Non-tender BM: 03/01 x1 I/O: 1200/Not Noted Skin: Back of Head laceration, erythema, Bruises Mega: 18 Diet Order: Mechanical Soft Estimated Energy Needs: ( Geriatric, CBW) 7952-6160 kcals (25-30 kcals/ kg) 70-80g Pro (1.0-1.2 g/kg) 3040-9201 ml (25-30 ml/kg) Current Diet Order/ Nutrition Support Mechanical Soft Pertinent Medications Lipitor, Colace Pertinent Labs 02/25: A1c 5.7% 02/21: Glucose 92, BUN/Cr 6/0.4 Nutritional Hx/Data Height 1.63 m Height (Calculated Centimeters) 162.6 Current Weight (lbs) 68.039 kg Weight (Calculated Kilograms) 68.0 Weight (Calculated Grams) 46923.9 [place] Body Weight 120 LB (54.55 kg) % [place] Body Weight 125 Body Mass Index (BMI) 25.7 Weight Status Overweight GI Symptoms Last BM 03/01 x1 Skin Integrity/Comment: Skin: Back of Head laceration, erythema, Bruises Mega: 18 Per wound care note (02/26), Laceration, present on admission. Wound bed has 100% black scab. No odor, no drainage. Loan-wound intact. Dry, stable. Current %PO Good (75-100%) Estimated Nutritional Goals BEE in Kcals: Using Current wt Calories/Kcals/Kg 25-30 Kcals Calculated 6370-8281 Protein: Using Current wt Protein g/k.0-1.2 Protein Calculated 70-80 Fluid: ml 0044-6972 ml (25-30 ml/kg) Nutritional Problem No current Nutrition Prob Problem No nutrition diagnosis at this time. Etiology N/A Signs/Symptoms: N/A Malnutrition Related to Morbid Obesity Malnutrition related to morbid obesity No Intervention/Recommendation Comments Continue Mechanical Soft diet as tolerated. Expected Outcomes/Goals Expected Outcomes/Goals 1.PO intake to continue to meet >75% of estimated nutritional needs. 2.Monitor PO intake, wt, nutrition related labs, and skin integrity to continue to trend WNL. 3.F/U as low risk in 7-10 days , 03/09-03/12.
--- NOTE | 2020-03-09 14:07 | Progress Notes ---
DATE: SUBJECTIVE: Chart reviewed and the patient interviewed. Also discussed the patient's condition with the staff and reviewed records and labs. The patient is still complaining of pain in her back and different areas of her body. The patient is still histrionic and multiple somatic complaints and attention seeking. The patient also is still anxious and she is still having mood swings. The patient also is still in a depressed mood. The patient also refused to take her medications in the morning, but she takes it at night. She also still has issues with anger at times. Otherwise, the patient is compliant with taking her medications with no side effects of medications. ASSESSMENT: The patient is still depressed and still needs monitoring and to be prompt in taking her medications. TREATMENT PLAN: We will increase Zoloft to 150 mg and will change it to be given at bedtime since the patient seems to be more compliant with taking her medications at night. Also, continue working on behavior and continue to follow up. ESTIMATED LENGTH OF STAY: 2-4 days. REASON FOR CONTINUED HOSPITAL STAY: The patient still needs medication adjustment and placement. ROBERTS [place]APEL# [id number]
[2020-03-09] MEDS: Atorvastatin Calcium 10 MG TAB PO SCH (20:55)
[2020-03-10] MEDS: Apixaban 5 MG TABLET PO SCH ×2 (08:51→17:06)
[2020-03-10] MEDS: Venelex 60gm Tube TP SCH (16:32)
[2020-03-10] MEDS: Atorvastatin Calcium 10 MG TAB PO SCH (21:01)
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
[2020-03-11] MEDS: Venelex 60gm Tube TP SCH (09:01)
[2020-03-11] MEDS: Apixaban 5 MG TABLET PO SCH ×2 (09:02→16:33)
--- NOTE | 2020-03-11 13:45 | Internal Medicine Prog Note ---
Internal Medicine Subjective - Subjective Service Date: 03/11/20 Patient seen and examined:: without staff Patient is:: awake, verbal, interactive Per staff patient has:: no adverse event, no episodes of fall Internal Medicine Objective - Physical Exam Vitals and I&O: Vital Signs Temp 98.8 F 03/11/20 06:45 Pulse 78 03/11/20 06:45 Resp 20 03/11/20 06:45 BP 114/82 03/11/20 06:45 Pulse Ox 98 03/11/20 06:45 Intake & Output 03/10/20 03/11/20 03/11/20 18:59 06:59 18:59 Intake Total 900 240 Balance 900 240 Intake: Oral 900 240 Other: # Voids 2 # Bowel Movements 0 Active Medications: Current Medications Acetaminophen (Tylenol) 650 mg PO Q4H PRN PRN Reason: Pain (Mild 1-3) Stop: 04/26/20 06:03 Last Admin: 03/09/20 02:26 Dose: 650 mg Acetaminophen (Tylenol) 650 mg PO Q4H PRN PRN Reason: Temperature Above 100 Stop: 04/26/20 06:04 Alprazolam (Xanax) 0.25 mg PO Q6HR PRN; Protocol PRN Reason: Anxiety Stop: 04/26/20 06:18 Last Admin: 03/08/20 13:49 Dose: 0.25 mg Alprazolam (Xanax) 0.5 mg PO BID [facility] Stop: 04/26/20 08:59 Last Admin: 03/11/20 09:01 Dose: 0.5 mg Atorvastatin Calcium (Lipitor) 10 mg PO HS [facility]; Protocol Stop: 04/26/20 20:59 Last Admin: 03/10/20 21:01 Dose: 10 mg Buspirone HCl (Buspar) 10 mg PO BID [facility]; Protocol Stop: 05/09/20 08:59 Last Admin: 03/11/20 09:01 Dose: 10 mg [place] Oil/[place] Balsam/Trypsin (Venelex) 1 appl TP DAILY [facility] Stop: 05/09/20 15:14 Last Admin: 03/11/20 09:01 Dose: 1 appl Docusate Sodium (Colace) 100 mg PO DAILY [facility] Stop: 04/26/20 08:59 Last Admin: 03/11/20 09:02 Dose: 100 mg Levetiracetam (Keppra) 500 mg PO BID [facility] Stop: 04/29/20 08:59 Last Admin: 03/11/20 09:02 Dose: 500 mg Mirtazapine (Remeron) 15 mg PO HS [facility] Stop: 04/27/20 20:59 Last Admin: 03/10/20 21:01 Dose: 15 mg Pregabalin 150 mg/ Pregabalin (50 mg) 200 mg PO DAILY [facility] Stop: 04/27/20 08:59 Last Admin: 03/11/20 09:01 Dose: 200 mg Sertraline HCl (Zoloft) 150 mg PO HS [facility] Stop: 05/08/20 20:59 Last Admin: 03/10/20 21:01 Dose: 150 mg Trazodone HCl (Desyrel) 175 mg PO HS [facility]; Protocol Stop: 04/27/20 20:59 Last Admin: 03/10/20 21:00 Dose: 175 mg Zolpidem Tartrate (Ambien) 5 mg PO HS PRN PRN Reason: Insomnia Stop: 05/05/20 11:19 Last Admin: 03/07/20 01:16 Dose: 5 mg HEENT: NC/AT Neck: No JVD Lungs: CTAB Cardiovascular: RRR, Normal S1, Normal S2 Abdomen: soft, non-tender Extremities: clear Neurological: no change Internal Medicine Assmt/Plan - Assessment Assessment: 1. UTI, resolved 2. Agitation 3. Echymosis of leg healing slowly - Plan Plan: stat cbc, inr, pt, ptt discussed with lenard Nutritional Asmnt/Malnutr-PDOC - Dietary Evaluation Malnutrition Findings (Please click <Entered> for more info): Nutritional Asmnt/Malnutrition Start: 03/02/20 14: 38 Text: Status: Complete Freq: Protocol: Document 03/02/20 14:38 KEYONA (Rec: 03/02/20 14:41 KEYONA [id number]) Nutritional Asmnt/Malnutrition Patient General Information Nutritional Screening Low Risk Diagnosis Psychosis Pertinent Medical Hx/Surgical Hx AFib, Seizure disorder, Dyslipidemia Subjective Information Pt is a 57-year-old female admitted on 02/24 d/t increased agitation. Pt is eating an estimated 80% of meals x4 days Per Meal/Nutrition Activity Record. Dietary is currently providing an estimated 2400 kcals and 120 gm Pro, per Pt PO intake this is providing an estimated 1900 kcals and 95gm Pro to meet 100% kcal and 100 +% Pro needs. Per wound care note (02/26), Laceration, present on admission. Wound bed has 100% black scab. No odor, no drainage. Loan-wound intact. Dry, stable. Anthropometrics HT: 54 WT: 150 LB (68.18 kg) BMI: 25.75 (overweight) GI/ Skin Integrity GI: WNL, Soft, Non-tender BM: 03/01 x1 I/O: 1200/Not Noted Skin: Back of Head laceration, erythema, Bruises Mega: 18 Diet Order: Mechanical Soft Estimated Energy Needs: ( Geriatric, CBW) 6558-5756 kcals (25-30 kcals/ kg) 70-80g Pro (1.0-1.2 g/kg) 6453-3211 ml (25-30 ml/kg) Current Diet Order/ Nutrition Support Mechanical Soft Pertinent Medications Lipitor, Colace Pertinent Labs 02/25: A1c 5.7% 02/21: Glucose 92, BUN/Cr 6/0.4 Nutritional Hx/Data Height 1.63 m Height (Calculated Centimeters) 162.6 Current Weight (lbs) 68.039 kg Weight (Calculated Kilograms) 68.0 Weight (Calculated Grams) 44833.9 [place] Weight 120 LB (54.55 kg) % [place] Weight 125 Body Mass Index (BMI) 25.7 Weight Status Overweight GI Symptoms Last BM 03/01 x1 Skin Integrity/Comment: Skin: Back of Head laceration, erythema, Bruises Mega: 18 Per wound care note (02/26), Laceration, present on admission. Wound bed has 100% black scab. No odor, no drainage. Loan-wound intact. Dry, stable. Current %PO Good (75-100%) Estimated Nutritional Goals BEE in Kcals: Using Current wt Calories/Kcals/Kg 25-30 Kcals Calculated 7384-6066 Protein: Using Current wt Protein g/k.0-1.2 Protein Calculated 70-80 Fluid: ml 3898-4103 ml (25-30 ml/kg) Nutritional Problem No current Nutrition Prob Problem No nutrition diagnosis at this time. Etiology N/A Signs/Symptoms: N/A Malnutrition Related to Morbid Obesity Malnutrition related to morbid obesity No Intervention/Recommendation Comments Continue Mechanical Soft diet as tolerated. Expected Outcomes/Goals Expected Outcomes/Goals 1.PO intake to continue to meet >75% of estimated nutritional needs. 2.Monitor PO intake, wt, nutrition related labs, and skin integrity to continue to trend WNL. 3.F/U as low risk in 7-10 days , 03/09-03/12.
[2020-03-11] MEDS: Atorvastatin Calcium 10 MG TAB PO SCH (20:28)
[2020-03-12] MEDS: Apixaban 5 MG TABLET PO SCH ×2 (08:56→16:33)
[2020-03-12] MEDS ORDERED: Multivitamin w/ Minerals Tab PO SCH (09:00)
[2020-03-12] MEDS: Venelex 60gm Tube TP SCH (10:16)
--- NOTE | 2020-03-13 16:18 | Progress Notes ---
DATE: 03/11/2020 SUBJECTIVE: Chart reviewed and the patient interviewed. Also discussed the patient's condition with the staff and reviewed records and labs. The patient is still severely anxious and she is still in a depressed mood. The patient also still needs lots of reassurance. She is still suspicious and at times gets irritable and agitated, but no major behavioral issues. Also, at times, the patient wants to be left alone. She is compliant with her medications. The patient's gait is steady, but slow and vital signs are stable and no new labs available for review. MENTAL STATUS EXAMINATION: Calm. Cooperative. Needs reassurance. Thought processes are mainly goal directed. The patient denies hallucinations, but seems to be slightly paranoid. ASSESSMENT: The patient is still depressed and slightly psychotic. TREATMENT PLAN: We will continue current medications. Also, continue to monitor her behavior. Also, working on discharge plans and placement issues. ESTIMATED LENGTH OF STAY: One to two days. REASON FOR CONTINUED HOSPITAL STAY: The patient is still depressed and anxious and needs monitoring her medications. JOB# [id number]
== END 2020-03-12 18:20 | DRG 885 ==
LOC: GERO 18:48
PROVIDERS: ADMIT Psychiatry & Neurology Psychiatry; ATTEND Psychiatry & Neurology Psychiatry
DX: F29 Unspecified psychosis not due to a substance or known physiological condition (principal); N39.0 Urinary tract infection, site not specified; F32.9 Major depressive disorder, single episode, unspecified; G40.909 Epilepsy, unspecified, not intractable, without status epilepticus; I48.91 Unspecified atrial fibrillation; E78.5 Hyperlipidemia, unspecified; S80.12XA Contusion of left lower leg, initial encounter; X58.XXXA Exposure to other specified factors, initial encounter; Z79.899 Other long term (current) drug therapy; Y93.89 Activity, other specified; Y92.89 Other specified places as the place of occurrence of the external cause; Y99.8 Other external cause status
CPT/HCPCS: 83036-90; 90899; 97530; G0410; X3401; X3904; Z7610